=== PATIENT | female | born 1985 | race Hispanic/Latino ===

== ENCOUNTER 2016-08-19 10:19 | Day surgery (SDC) | payer OTHER ==
[~2016-08-19] VITALS: Ht 154.9 cm; Wt 74.0 kg
[2016-08-19] VITALS (10 sets, daily range): BP systolic 97–158; BP diastolic 58–85; PULSE 65–90; RESP 12–18; O2SAT 97–100
[~2016-08-19 10:19] MED LIST: CeFAZolin Inj 2 GM in IV Premix 1 EACH IV ONE; LOSA25TA21 PO; Lactated Ringer's 1,000 ML IV SCH; MIRENA IUD INTRAUTERI
[2016-08-19] MEDS ORDERED: Neostigmine 1 mg/mL 5 mL Inj ONE (10:20)
[2016-08-19] MEDS ORDERED: Rocuronium 10 mg/mL 5 mL Inj ONE (10:20)
[2016-08-19] MEDS ORDERED: Glycopyrrolate 0.2 MG/ML 1mL Inj ONE (10:20)
[2016-08-19] MEDS ORDERED: fentaNYL-PF 50 mCg/mL 2 mL Inj ONE (10:20)
[2016-08-19] MEDS ORDERED: Dexamethasone 4 mg/mL Inj ONE (10:20)
[2016-08-19] MEDS ORDERED: Remifentanil 1 mg/3 mL Inj ONE (10:20)
[2016-08-19] MEDS ORDERED: Propofol 10,000 mCg/mL 20 mL Inj ONE (10:20)
[2016-08-19] MEDS ORDERED: Lactated Ringer's 1,000 ML IV ONE (11:43)
[2016-08-19] MEDS ORDERED: CeFAZolin Inj 2 gm / 50mL D5W IV ONE (12:06)
--- NOTE | 2016-08-19 13:44 | PCM.HPANE ---
Patient Data Surgeon Admitting Provider: Attending Provider:Carl Nichole MD Primary Care Physician:Glynn Martin MD Other Provider:Purnima Garcíaingham Anesthesia Reason for Visit Gallbladder Polyp Ht/WT & BMI Height (Feet): 5 Height (Inches): 1.00 Weight (Kilograms): 74.000 Body Mass Index 30.00 Allergies Coded Allergies: No Known Allergies (Verified , 08/14/16) Past Anesthesia History Anesthesia History: Denies:: Anesthesia Reactions, Malignant Hyperthermia Diabetes History Hx Diabetes?: No MRSA MRSA: No Medications Hypertension Medication: Yes (LOSARTAN) Home Meds Incl Beta Debbie: No Reported Medications [Mirena Iud] No Conflict Check Intrauteri Q 5 Yrs 20MCG/24H 08/14/16 Losartan Potassium 25 Mg [id number] Mg PO DAILY 08/14/16 Discontinued Reported Medications PNV CMB#95/FERROUS FUMARATE/FA-Expunged Drug, (-Expunged Drug, Do Not Renew!)1 Each Tablet1 Each PO 1-2XD 12/04/12 Discontinued Scripts IBUPROFEN-Expunged Drug, Do Not Renew! 800 Mg [id number] Mg PO Q6 PRN #60 Prov:Dominique Salazar Jordin [facility] 12/05/12 Hydrocod/APAP-Expunged, Do Not Renew! (VICODIN 5/325-Expunged Drug, Do Not Renew )1 Each Tablet Po Q4-6H Prn #20 Prov:Dominique Salazar [facility] 12/05/12 History History of ENT Problems?: Yes Other HEENT Pertinent History: S/P TONSILLECTOMY Hx of Heart Problems?: Yes Cardiovascular History: Positive for:: Hypertension Denies:: Heart Murmur Irregular Heartbeat Hx of Respiratory Problem?: Yes Respiratory History: Denies:: Use of C-PAP Machine (SNORES) Hx Neurologic Problems?: Yes Neurological History: Positive for:: Headaches Denies:: Alzheimer's Disease Dementia Hx of GI Problems?: Yes Gastrointestinal History: Positive for:: Gall Bladder Disease (GALLBLADDER POLYP=CURRENT PROBLEM C/OF ABD PAIN,BLOATING) Gastroesphageal Reflux Hx of Problems?: No Female Hx: Positive for:: Problems with Breasts? (C/OF BREAST PAIN) Denies:: Currently (neg urine dip) Skin History: Denies:: History Skin Disorders? Pressure Ulcers Hx Musculoskeletal Problems?: Yes Musculoskeletal History: Denies:: Back Injury (C/OF BACK PAIN) Hx of Psycho/Social Problems?: Yes Psycho Social History: Positive for:: Anxiety Hx Depression (HX OF DYSTHYMIA) Denies:: Bipolar Disorder Suicide Attempt Hx Surgeries?: Yes (TONSILLECTOMY,D&C) Hx Any Other Health Problems?: Yes Other History: Positive for:: Hospitalization (CHILDBIRTH) Denies:: Cancer Endocrine Disease Thyroid Disease History Blood Transfusions: Denies:: Blood Transfusions Hx Diabetes: No Hx Alcohol Use: NoHx Substance Use: Yes (Marijuana, including early first trimester before she knew she was ) Smoking Status: Never Smoker Have You Smoked inLast 12 mo: No Stop/Bang S-Snoring: Do You Snore Loudly: Yes T-Tired: feel tired, fatigued: No O-Obsered: Observed not breath: No P-Blood Pressure: treated: Yes B- Body Mass Index > 35 kg/m2: No A- Age over 50: No N- Neck Large Circumference: No G- Gender Male: No RADHA Total Score: 2 Risk Assessment Category Category 1A: Patient has history of documented sleep apnea, and HAS NOT received any narcotic, sedative or anesthesia administration during this stay. Category 1B: Patient has history of documented sleep apnea, and HAS received any narcotic , sedative or anesthesia administration during this stay Category 2: Patient has SUSPECTED Obstructive Sleep Apnea, and HAS received any narcotic , sedative or anesthesia administration during this stay. Category 3: Patient has SUSPECTED Obstructive Sleep Apnea and HAS NOT received narcotic, sedative or anesthesia administration during this stay. Category 4: Outpatient in Procedural Areas with known sleep apnea or who screen positive for High Risk via the STOP/BANG questionnaire. Exam Exam Vital Signs Vital Signs Date Time Temp Pulse Resp B/P Pulse Ox O2 Delivery O2 Flow Rate FiO2 08/19/16 11:28 36.5 90 18 118/80 99 Room Air General Appearance: Alert, Oriented X3, Cooperative, No Acute Distress HEENT/AIRWAY: MP 2 Lungs: Clear to Auscultation, Normal Air Movement Heart: Exam Unremarkable, Regular Rate/Rhythm, No Murmurs/Rubs/Gallops Meds/Labs/Diagnostics Admission Meds Current Medications Lactated Ringer's (Lr) 1,000 ml @ ud STK-MED ONCE IV Last administered on 3/14 /17at 11:43; Start 08/19/16 at 11:43; Stop 08/19/16 at 11:44; Status DC Plan Impression Patient chart reviewed, patient interviewed and anesthestic plan with risks, benefits, and alternatives discussed, and informed consent obtained. NPO Status: confirmed before mn ASA Physical Status: ASA1 Normal Healthy Anesthetic Plan: GA Bene/Risks/Altern/Consents: Yes HP Complete Prior to Induction: Yes Orlin Loco MD Aug 19, 2016 12:55
[2016-08-19] MEDS ORDERED: Lactated Ringer's 1,000 ML IV SCH (13:45)
[2016-08-19] MEDS ORDERED: fentaNYL-PF 50 mCg/mL 2 mL Inj IVPUSH PRN (13:45)
[2016-08-19] MEDS ORDERED: Atropine 0.4 mg/mL Inj IVPUSH PRN (13:45)
[2016-08-19] MEDS ORDERED: Dexamethasone 4 mg/mL Inj IVPUSH PRN (13:45)
[2016-08-19] MEDS ORDERED: hydrALAZINE 20 mg/mL Inj IVPUSH PRN (13:45)
[2016-08-19] MEDS ORDERED: Labetalol 5 mg/mL 4 mL Inj IV PRN (13:45)
[2016-08-19] MEDS ORDERED: EPHEDrine Sulfate 50 mg/mL Inj IVPUSH PRN (13:45)
[2016-08-19] MEDS ORDERED: Ondansetron 2 mg/mL 2 mL Inj IVPUSH PRN (13:45)
[2016-08-19] MEDS ORDERED: MetoCLOpramide 5 mg/mL 2 mL Inj IVPUSH PRN (13:45)
[2016-08-19] MEDS ORDERED: Lactated Ringer's 500 ML IV PRN (13:45)
[2016-08-19] MEDS ORDERED: Phenylephrine 10,000 mCg/mL Inj IVPUSH PRN (13:45)
[2016-08-19] MEDS ORDERED: HYDROmorphone 1 mg/mL Inj IVPUSH PRN (13:45)
[2016-08-19] MEDS ORDERED: Iopamidol-300 50 mL Inj INJ ONE (13:50)
--- NOTE | 2016-08-19 14:03 | DRSVH ---
PROCEDURE: X-RAY OPERATIVE CHOLANGIOGRAM ([id number]) INDICATIONS: GALLBLADDER POLYP COMPARISON: [facility] Ultrasound, US, US ABDOMEN, 07/29/2016, 9:09. FINDINGS: Biliary ducts: The surgeon injected contrast into the biliary ducts after cannulation of the cystic duct stump. Visualized intra- and extrahepatic bile ducts are normal in caliber, without strictures. No intraluminal filling defects to suggest retained ductal stones or sludge. No evidence for iatro genic ductal injury. Duodenum: Contrast flows promptly through the sphincter of Oddi into the duodenum, which appears nor mal in caliber. IMPRESSION: Normal exam. Dictated by: Matthew Schofield Jacquie Interpreted: Candi Mora MD on 08/19/2016 at 14:02 Transcribed by: TRISTEN on 08/19/2016 at 14:02 Approved by: Candi Mora M.D. on 08/19/2016 at 17:32
[2016-08-19] MEDS ORDERED: Bupivacaine 0.5%/EPI 50 mL Inj INJ ONE (14:08)
--- NOTE | 2016-08-19 14:23 | PCM.DISURG ---
Surgical Discharge Instruction Date of Service Aug 19, 2016 Dates of Hospitalization Date of Hospital Admission Providers Admitting Physician: Primary Care Physician: Glynn Martin MD Attending Physician: Carl Nichole MD Discharge Diagnosis Discharge Diagnosis Gallbladder polyps, gallstones Diet Discharge Diet: No restrictions Activity Discharge Activity-General: No lifting >15 pounds for 2 weeks Dressing and Incisional Care Dressing Care: Allow Steri Stripes to fall off, Remove outer dressing after 24 hrs Hygiene: May shower after (24 hours) Follow Up Plan Follow Up Plan In the general surgery [place] postoperative clinic in 2 weeks Call your provider for: Fever (over 101.5), Vomiting, Discharge @ incision, pus discharge Carl Nichole MD Aug 19, 2016 14:23
--- NOTE | 2016-08-19 14:29 | PCM.SURGOP ---
Surgical Operative Report Date of Service: Aug 19, 2016 Pre Operative Diagnosis Gallbladder polyp Post Operative Diagnosis Same, gallstones, mild chronic cholecystitis Procedure: Laparoscopic cholecystectomy with intraoperative cholangiogram Surgeon and Senior Ui Software Engineer: Surgeon: Carl Nichole MD Assistants: Jessica Mcmillan PA-C Indication for Procedure 30-year-old woman who has had a known gallbladder polyp since 2007. At that time, it measured 6 mm in size. Recently, she has had 2 weeks of increased epigastric discomfort, bloating. Repeat ultrasound demonstrated that the gallbladder polyp measured 9 mm in size. No other abnormalities were identified. After discussion of risks and benefits, she agreed to proceed with cholecystectomy. Findings: When the gallbladder was opened on the back table, there was one free floating lesion, the left consistent with a gallstone, but it was somewhat soft to palpation. There were multiple other smaller similar-looking lesions which were attached to the gallbladder wall. There were some mild filmy adhesions to the infundibulum. The intraoperative cholangiogram was normal. Procedure Details After smooth induction of general endotracheal anesthesia, the patient was placed in the supine position with the right arm tucked. A procedural pause was performed according to the SCOAP checklist, and all were found to be in agreement. A curvilinear infraumbilical incision was made. Dissection was carried down with electrocautery until the midline fascia was incised vertically, and the peritoneal cavity entered without difficulty. Pneumoperitoneum was established. Inspection revealed some inflammatory adhesions to the fundus of the gallbladder. 3 additional ports were placed under direct visualization. One was placed in the midline epigastrium, and 2 in the right subcostal region. Adhesions were taken down from the gallbladder infundibulum with electrocautery. The fundus of the gallbladder was then grasped and retracted cephalad. The infundibulum of the gallbladder was grasped. The peritoneum was incised. The cystic artery was doubly clipped and divided. The critical view was obtained using the infundibular technique. A clip was placed on the gallbladder side of the cystic duct and a cystic ductotomy was made. A cholangiogram was obtained using the 5 [place] cholangiocatheter. This demonstrated a long cystic duct, normal ductal anatomy, normal flow into the duodenum. The cholangiocatheter was removed. 2 clips were placed on the common bile duct side of the cystic duct ductotomy, and the duct was divided with scissors. The remainder of the gallbladder was dissected out of the gallbladder fossa with electrocautery. Dissection was carried deep to the cystic plate because of the gallbladder polyp. Because of the plane of dissection, there was slightly more bleeding than normal, which was controlled with electrocautery. The gallbladder was placed into an Endo Catch bag and removed from the umbilical port site. The gallbladder was opened on the back table. It had one free floating lesion measuring approximately 1 cm in diameter , which looked like a gallstone, but was slightly softer to palpation. There were multiple other smaller lesions with a similar appearance which were adherent to the gallbladder wall. The gallbladder was passed off the field and sent for permanent pathology. The gallbladder fossa was inspected and irrigated. Hemostasis was adequate, and there was no bile leak. The ports were removed under direct visualization and pneumoperitoneum was released. The fascia of the umbilical port site was closed using an 0 Vicryl suture in a [id number]. The skin incisions were closed using running 4-0 Monocryl subcuticular stitches. Steri-Strips and sterile dressings were applied. At the end of the case all needle and sponge counts were correct 2. The patient was awakened from anesthesia without difficulty, and taken to the recovery room in satisfactory condition, having tolerated the procedure well. Complications There were no periprocedural complications identified. Surgical Specimen Removed: Yes Specimen sent to Pathology: Yes Surgical Specimen description: Gallbladder Anesthetic Plan: GA Grafts, Implants: None Output, Estimated Blood Loss: 30 Blood Administration during buenrostro: No Drains: None Catheters: None copies to: Glynn Martin MD, Joshua D MD Aug 19, 2016 14:28
--- NOTE | 2016-08-19 14:37 | PCM.ANEP1 ---
Post Anesthesia Phase 1 PACU Phase 1 Assessment Date of Service: Aug 19, 2016 Vital Signs Vital Signs Date Time Temp Pulse Resp B/P Pulse Ox O2 Delivery O2 Flow Rate FiO2 08/19/16 14:32 37.4 75 14 158/83 100 Nasal Cannula 4 08/19/16 11:28 36.5 90 18 118/80 99 Room Air Anesthetic Administered: GA Level of Alertness: Awake, talking DING's with Equal Strength: Yes Pain: Yes Pain Scale Score: 5 Nausea or Vomiting: No Oxygen Delivery: Nasal Cannula Lungs: Clear to Auscultation, Normal Air Movement Dermatome Level: Full Sensation Summary sore throat Orlin Loco MD Aug 19, 2016 14:37
[2016-08-19] MEDS: HYDROcodone-APAP 5-325 mg Tablet PO PRN ×2 (16:00→16:48)
--- NOTE | 2016-08-19 22:16 | PCM.ANEP2 ---
Post Anesthesia Evaluation ASA/CMS Post Anesthesia VS in Patient's Normal Range?: Yes Resp Stable; Airway Patent?: Yes CV Function & Hydration Stable: Yes Mental Status Recovered?: Yes Pain control Satisfactory?: Yes N/V Control Satisfactory?: Yes Orlin Loco MD Aug 19, 2016 22:16
--- NOTE | 2016-08-21 14:15 | PATH ---
SURGICAL PATHOLOGY Attending Physician:Radha Staples CASE STATUS: Signed Out PATIENT NAME: ANABELA CAO PID: [id number] : 1985 DATE COLLECTED:08/19/2016 23:19 SPECIMEN: Gallbladder CLINICAL HISTORY: GALLBLADDER POLYP 1). GALLBLADDER FINAL DIAGNOSIS: 1.GALLBLADDER: GALLBLADDER WITH CHOLESTEROL POLYP. No evidence of malignancy. ICD10 code K82.8 GROSS DESCRIPTION: The specimen is received in one formalin filled container labeled with the patient's name, sublabeled "gallbladder" and consists of an opened 5.0 x 2.5 x 1.0 CM gallbladder. The serosa is smooth. The wall is 0.2-0.3 CM in thickness. The mucosa is a light green in color. The lumen contains a light green mucoid material and no calculus are noted. 5 sales representative livestock sections are submitted in one cassette. 08/20/2016 DAC MICRO DESCRIPTION: See diagnosis. ICD-9 CODES: CPT CODES: 1: 46052 Electronically Signed Out Gail Sawant MD [facility] [address], [place] [address] Technical component performed at [facility], [address] [place] [address] Ave[address], [place], [address]
== END 2016-08-19 23:59 | disposition home or self-care (01) ==
LOC: SAS 10:19
PROVIDERS: ATTEND Student in an Organized Health Care Education/Training Program
DX: K82.4 Cholesterolosis of gallbladder (principal); K82.8 Other specified diseases of gallbladder; I10 Essential (primary) hypertension; R51 Headache; K21.9 Gastro-esophageal reflux disease without esophagitis; F41.9 Anxiety disorder, unspecified; F32.9 Major depressive disorder, single episode, unspecified; Z79.899 Other long term (current) drug therapy
CPT/HCPCS: 47563; 74300; 88304; J0690; J1100; J1170; J2270; J2405; J2710; J3010; J7120; Q9967

== ENCOUNTER 2016-10-03 16:10 | Emergency (ER) | payer OTHER ==
[~2016-10-03] VITALS: Ht 154.9 cm; Wt 77.3 kg
[~2016-10-03 16:10] MED LIST changes: -CeFAZolin Inj 2 GM in IV Premix 1 EACH IV ONE; -Lactated Ringer's 1,000 ML IV SCH
[2016-10-03 16:14] VITALS: BP 151/89; PULSE 77; RESP 16; O2SAT 98
[2016-10-03 16:34] LABS: BASOPHILS % (AUTO) 0.2 % (0-3); MONOCYTES % (AUTO) 5.5 % (4-12); Mean Corpuscular Hemoglobin 30.9 pg (27.0-35.0); Mean Corpuscular Volume 91.1 fL (81-100); NEUTROPHILS % (AUTO) 65.8 % (40-74); Platelet Count 191 bil/L (150-400)
[2016-10-03 17:13] LABS: APPEARANCE,URINE HAZY (CLEAR,HAZY); COLOR,URINE YELLOW (YELLOW); OCCULT BLOOD,URINE NEGATIVE (NEGATIVE); UROBILINOGEN,URINE NORMAL (NORMAL)
--- NOTE | 2016-10-03 17:31 | ED.REPORT ---
HPI-Abd Pain F Under 40 Date of Service Oct 03, 2016 ED Provider: Mildred Charles MD 30 y/o female with a hx of HTN presents to the ED complaining of worsening abdominal pain, onset yesterday which is radiating to her back. She described her pain as similar to labor pain. She feels bloated and has been experiencing abdominal cramping. She rates her pain 8/10 in severity. Pt also complains of feeling hot and cold, diaphoresis at night, diarrhea in the morning, and one episode of vomiting at urgent care before she arrived at the ED. The pt reports she has had regular BMs before today. Nursing Notes Stated Complaint: ABDOMINAL PAIN Chief Complaint: Female Abdominal Pain Nursing Notes Reviewed: Yes Allergies: Coded Allergies: No Known Allergies (Verified , 10/03/16) Scheduled ([Mirena Iud]) INTRAUTERI Q 5 YRS 20MCG/24H Losartan Potassium (Losartan Potassium) 25 Mg Tablet 25 MG PO DAILY General Time Seen by MD: 17:30 Chief Complaint Abdominal pain Hx Obtained From: Patient Sudden in Onset?: Yes Onset Occurred: Yesterday Symptom Duration: Since onset Location: : Diffuse Quality: Painful Radiation: : Back Severity: Current: Moderate Severity: Maximum: Moderate Recent Healthcare: Recent doctor visit Similar Sx Previous: Yes Past Medical History Past Medical History Anxiety Reports: Hypertension Reports: Depression Past Surgical History Reports: Tonsillectomy Smoking History Never Smoker Social History Drug Use: THC Ambulatory Status Independent Review of Systems Constitutional: Reports: Chills, Fever GI: Reports: Abdominal pain, Vomiting Musculoskeletal: Reports: Back pain Complete sys rev & neg: except as marked. Skin: Reports Diaphoresis Physical Exam Initial Vital Signs Vital Signs (First) Date Time Temp Pulse Resp B/P Pulse Ox O2 Delivery O2 Flow Rate FiO2 10/03/16 16:14 37.0 77 16 151/89 98 Room Air Initial VS: Reviewed Head / Eyes: Atraumatic, Normocephalic, PERRL Neck: Supple, Non-tender, Full range of motion Extremities: Vascular intact, Neuro intact, No swelling, No tenderness Skin: Warm, Dry, No cyanosis Neurologic: Alert, Oriented, Nonfocal Psychiatric: Mood/affect normal, Behavior normal, Normal thought content General/Constitutional: Awake, Alert, Cooperative, Not toxic appearing Respiratory / Chest: Atraumatic, Breath sounds NL, Breath sounds = bilat, No respiratory distress, No rales, No rhonchi, No wheezing, No retractions Cardiovascular: Heart rate NL, Regular rhythm, Heart sounds NL, No gallop, No murmurs Abdomen: Atraumatic, Soft Hyperactive bowel sounds. Mild lower quadrant tenderness Back: Atraumatic, Full range of motion, Non-tender ENT: Atraumatic, Airway patent, Mucous membranes moist Ulcer on the tounge Interpretation & Diagnostics Lab Results Interpretation Result Diagram: 10/03/16 1625 10/03/16 1625 Test 10/03/16 16:25 10/03/16 16:30 White Blood Count 9.6th/mm3 (3.8-10.1) Red Blood Count 4.47mil/mm3 (3.90-5.20) Hemoglobin 13.8g/dL (12.0-15.6) Hematocrit 40.7% (35.0-46.0) Mean Corpuscular Volume 91.1fL (81-100) Mean Corpuscular Hemoglobin 30.9pg (27.0-35.0) Mean Corpuscular Hemoglobin Concent 33.9% (32.0-37.0) Red Cell Distribution Width 12.3% (12.3-15.4) Platelet Count 191bil/L (150-400) Neutrophils (%) (Auto) 65.8% (40-74) Lymphocytes (%) (Auto) 27.4% (14-46) Monocytes (%) (Auto) 5.5% (4-12) Eosinophils (%) (Auto) 1.0% (0-5) Basophils (%) (Auto) 0.2% (0-3) Sodium Level 137mEq/L (134-144) Potassium Level 3.6mEq/L (3.5-5.2) Chloride Level 100mEq/L (97-108) Carbon Dioxide Level 24mmol/L (18-29) Blood Urea Nitrogen 12mg/dL (6-20) Creatinine 0.60mg/dL (0.57-1.00) Estimat Glomerular Filtration Rate 166mL/min (>59) Glucose Level 94mg/dL (60-99) Lactic Acid Level 0.2mmol/L (0.4-2.0) Calcium Level 9.1mg/dL (8.5-10.1) Magnesium Level 2.0mg/dL (1.6-2.6) Total Bilirubin 0.3mg/dL (0.0-1.2) Aspartate Amino Transf (AST/SGOT) 19U/L (0-50) Alanine Aminotransferase (ALT/SGPT) 24U/L (0-32) Alkaline Phosphatase 90U/L (25-150) Total Protein 7.1g/dL (6.4-8.4) Albumin 4.7g/dL (3.4-5.0) Lipase 42U/L (13-60) Hold Blanco Top Tube Received (Received) Urine Color Yellow (YELLOW) Urine Appearance Hazy (CLEAR,HAZY) Urine pH 6.0 (5.0-8.0) Urine Specific [place] 1.010 (1.003-1.035) Urine Protein Negativemg/dL (NEG,TRACE) Urine Glucose (UA) Negativemg/dL (NEGATIVE) Urine Ketones Negativemg/dL (NEGATIVE) Urine Occult Blood Negative (NEGATIVE) Urine Nitrite Negative (NEGATIVE) Urine Bilirubin Negative (NEGATIVE) Urine Urobilinogen Normalmg/dL (NORMAL) Urine Leukocyte Esterase Small (NEGATIVE) Urine RBC 0-2/hpf (0-2) Urine WBC 6-10/hpf (0-5) Urine Epithelial Cells Moderate/hpf (NONE-MOD) Urine Crystals None seen (NONE SEEN) Urine Bacteria Few/hpf (NONE-FEW) Urine Hyaline Casts None/lpf (NONE) Urine Granular Casts None seen (NONE SEEN) Urine Waxy Casts None seen (NONE SEEN) Urine Red Blood Cell Casts None seen (NONE SEEN) Urine White Blood Cell Casts None seen (NONE SEEN) Urine Mucus None seen (None Seen) Urine Trichomonas None seen (NONE SEEN) Urine Yeast None (NONE SEEN) Urinalysis Comment None Urine Culture Reflexed Indicated Re-Eval/Medical Decision Med Decision/Clinical Course The patient presents 3 weeks after surgery, she did have an problems for 1 week with tactile fevers. Concern for possible surgery related complication. Patient does not show any signs of a retained stone given her normal labs. Patient was signed out to Dr. Taylor pending CT. Source of Hx: Old records Counseled Regarding: Diagnosis, Lab results Discharge & Departure Shift Change Sign-Out Patient Care Transferred: Yes Discussed Complaint(s): Yes Response to Therapy: Discussed Primary Impression: Abdominal pain Abdominal location: unspecified location Qualified Code: R10.9 - Unspecified abdominal pain Discharge Condition All VS Reviewed: Yes Condition: Stable Referrals: Glynn Matrin MD (PCP) Care Transferred to: Dr. Taylor Care Transferred at: 18:18 Scribe Attestation Portions of this note were transcribed by Nena Mcdonald and Tasneem English. I, , personally performed the history, physical exam and medical decision-making;I reviewed and confirmed the accuracy of the information in the transcribed note. Signed by Nena Mcdonald and Tasneem English, Scribe. 10/03/16 1820. Mildred Charles MD Oct 03, 2016 17:31 Nena Mcdonald Oct 03, 2016 17:40 Tasneem English Oct 03, 2016 18:20
[2016-10-03] MEDS ORDERED: 0.9% Sodium Chloride 1,000 ML IV ONE (17:35)
[2016-10-03] MEDS ORDERED: Ondansetron 2 mg/mL 2 mL Inj IVPUSH PRN (17:35)
[2016-10-03] MEDS ORDERED: HYDROmorphone 0.5 mg/0.5 mL iSecure Syringe IVPUSH PRN (17:35)
--- NOTE | 2016-10-03 18:19 | DRSVH ---
PROCEDURE: CT ABDOMEN AND PELVIS WITH CONTRAST ([id number]) INDICATIONS: increasing post op pain TECHNIQUE: After the administration of intravenous contrast, 5 mm thick sections acquired from the diaphragm to the symphysis. 5 mm coronal and sagittal reformats were acquired. For radiation dose reduction, the following was used: automated exposure control, adjustment of mA and/or kV according to patient siz e. COMPARISON: None. FINDINGS: Image quality: Excellent. ABDOMEN: Lung bases: Lung bases are clear. Heart size is normal. Solid organs: Liver and spleen are normal in size and enhancement. Gallbladder is surgically absent . Biliary system is non dilated. Pancreas enhances normally. No adrenal nodules. Kidneys demonstr ate normal size and enhancement, without hydronephrosis. Peritoneum and bowel: A small hiatal hernia is present. Bowel loops demonstrate normal wall thicknes s and caliber. No free fluid or air. Normal appendix. Nodes and vessels: No retroperitoneal or mesenteric adenopathy by size criteria. Aorta and inferior vena cava are normal in size. Miscellaneous: No ventral hernias. PELVIS: Genitourinary: Bladder wall thickness is normal. An intrauterine device is present. Miscellaneous: No inguinal hernias or adenopathy. Bones: No suspicious bony lesions. No vertebral body compression fractures. IMPRESSION: 1. No acute process. 2. Normal appendix. 3. Small hiatal hernia. Dictated by: Sonia David M.D. on 10/03/2016 at 18:16 Approved by: Sonia David M.D. on 10/03/2016 at 18:17
[2016-10-03 19:17] VITALS: BP 123/57; PULSE 66; RESP 15; O2SAT 100
== END 2016-10-03 19:15 | disposition home or self-care (01) ==
LOC: SED 16:10
DX: R10.30 Lower abdominal pain, unspecified (principal); I10 Essential (primary) hypertension
CPT/HCPCS: 36415; 74177; 80053; 81000; 81025; 83605; 83690; 83735; 85025; 87086; 87088; 96361; 96374; 96375; 99285; J1170; J2405; J7030; Q9967